=== PATIENT | female | born 1980 | race Caucasian/White ===

== ENCOUNTER 2017-03-21 14:09 | Emergency (ER) | payer MEDICAID ==
[2017-03-21 14:20] VITALS: BMI 34.9
[2017-03-21 14:52] LABS: BILIRUBIN,URINE NEGATIVE (NEGATIVE); BLOOD/HEMOGLOBIN,URINE 1+ (NEGATIVE); GLUCOSE, URINE NEGATIVE (NEGATIVE); KETONES,URINE NEGATIVE (NEGATIVE); LEUKOCYTE ESTERASE ,URINE 1+ (NEGATIVE); NITRITES,URINE NEGATIVE (NEGATIVE); PH,URINE 6.5 (5.0 - 8.0); PROTEIN,URINE NEGATIVE (NEGATIVE); UROBILINOGEN,URINE NORMAL (NORMAL)
[2017-03-21 15:00] LABS: APPEARANCE,URINE CLEAR (CLEAR); COLOR,URINE YELLOW (YELLOW)
[2017-03-21 15:01] LABS: AMORPHOUS SEDIMENT,UR TRACE /HPF (NEGATIVE); BACTERIA,URINE TRACE /HPF (NEGATIVE); MUCUS,URINE FEW /HPF (NEGATIVE); RBC,URINE 0-2 /HPF (NEGATIVE); RENAL EPITHELIAL CELLS,URINE FEW /HPF (NEGATIVE); SQUAMOUS EPITHELIAL CELL,UR FEW /HPF (NEGATIVE)
[2017-03-21] MEDS ORDERED: ZOFRAN INJ 4 MG VIAL IM ONE (15:20)
--- NOTE | 2017-03-21 15:20 | ED.ABDFE ---
HPI - PCP Primary Care Physician: OUT OF [facility] - Complaint Chief Complaint:: ABD PAIN AND PASSING CLOTS. VAGINAL BLEEDING, UNSURE OF - Nurses notes reviewed Nurses Notes Review: Yes - Source History Provided: Patient - Mode of arrival Mode of Arrival: Ambulatory - Timing Onset of Chief Complaint: 03/21/17 Came on: Suddenly PMH - PMH Past Medical History: No Past Surgical History: Yes Surgical History: , [employer] Surgery - Family History History of Family Medical Conditions: Yes Family Medical History: Hypertension - Social History Alcohol Use: None Do you use any recreational Drugs:: No Lives With: Friend Lives Where: Home - infectious screening In the last 2 months have you had wt loss of >10#?: NO Have you had fever, night sweats or hemotysis?: No Have you traveled outside the country in the last 6 months?: No PE - Vital Signs Vitals: Temperature 97.7 F Pulse Rate [Left] 90 Pulse Rate 81 Respiratory Rate 12 Blood Pressure [Left Arm] 118/88 Blood Pressure 170/114 O2 Sat by Pulse Oximetry 99 ROR - Labs Reviewed Result Diagrams: 03/21/17 15:39 03/21/17 15:39 Laboratory: WBC 11.5 X10^3/uL (3.6-10.0) H 03/21/17 15:39 RBC 5.16 X10^6/uL (3.5-5.4) 03/21/17 15:39 Hgb 14.0 g/dL (12.0-16.0) 03/21/17 15:39 Hct 41.8 % (36.0-47.0) 03/21/17 15:39 MCV 81.0 fL (80.0-100.0) 03/21/17 15:39 MCH 27.1 pg (27.0-34.0) 03/21/17 15:39 MCHC 33.5 g/dL (33.0-35.0) 03/21/17 15:39 RDW 14.1 % (11.6-16.5) 03/21/17 15:39 Plt Count 321 X10^3/uL (150.0-450.0) 03/21/17 15:39 MPV 7.8 fL (7.4-11.0) 03/21/17 15:39 Neut % 65.8 % (42.0-75.0) 03/21/17 15:39 Lymph % 26.6 % (21.0-51.0) 03/21/17 15:39 [place] % 4.9 % (0.0-13.0) 03/21/17 15:39 Eos % 1.7 % (0.9-2.9) 03/21/17 15:39 Baso % 1.0 % (0.2-1.0) 03/21/17 15:39 Neut # 7.5 x10^3/uL (2.2-4.8) H 03/21/17 15:39 Lymph # 3.0 X10^3/uL (1.3-2.9) H 03/21/17 15:39 [place] # 0.6 x10^3/uL (0.3-0.8) 03/21/17 15:39 Eos # 0.2 x10^3/uL (0.0-0.2) 03/21/17 15:39 Baso # 0.1 X10^3/uL (0.0-0.1) 03/21/17 15:39 Absolute Nucleated RBC 0.0 /100WBC 03/21/17 15:39 Sodium 140 mmol/L (136-145) 03/21/17 15:39 Corrected Sodium TNP 03/21/17 15:39 Potassium 3.9 mmol/L (3.5-5.1) 03/21/17 15:39 Chloride 100 mmol/L (98-107) 03/21/17 15:39 Carbon Dioxide 28.6 mmol/L (21-32) 03/21/17 15:39 BUN 17 mg/dL (7-18) 03/21/17 15:39 Creatinine 0.88 mg/dL (0.55-1.02) 03/21/17 15:39 Est GFR (MDRD) Af Amer > 60 (>60) 03/21/17 15:39 Est GFR (MDRD) Non-Af > 60 (>60) 03/21/17 15:39 Glucose 93 mg/dL (65-99) 03/21/17 15:39 Calcium 9.5 mg/dL (8.5-10.1) 03/21/17 15:39 Corrected Calcium TNP 03/21/17 15:39 Total Bilirubin 0.80 mg/dL (0.2-1.0) 03/21/17 15:39 AST 22 Units/L (15-37) 03/21/17 15:39 ALT 37 Units/L (12-78) 03/21/17 15:39 Alkaline Phosphatase 94 Units/L (46-116) 03/21/17 15:39 Creatine Kinase 135 Units/L (26-192) 03/21/17 15:39 CK-MB (CK-2) 1.2 ng/mL (0-4.0) 03/21/17 15:39 CK/CKMB % Calc 0.9 % (<4) 03/21/17 15:39 Troponin I < 0.02 ng/mL (0-1.5) 03/21/17 15:39 Total Protein 9.1 g/dL (6.4-8.2) H 03/21/17 15:39 Albumin 4.4 g/dL (3.4-5.0) 03/21/17 15:39 Globulin 4.7 g/dL (2.5-4.5) H 03/21/17 15:39 Albumin/Globulin Ratio 0.9 Ratio (1.1-2.1) L 03/21/17 15:39 Amylase 31 Units/L (25-115) 03/21/17 15:39 Lipase 118 Units/L (73-393) 03/21/17 15:39 HCG, Qual Negative <10 mIU/mL 03/21/17 15:39 Specimen Type Clean catch urine 03/21/17 14:43 Urine Color Yellow (YELLOW) 03/21/17 14:43 Urine Appearance Clear (CLEAR) 03/21/17 14:43 Urine pH 6.5 (5.0 - 8.0) 03/21/17 14:43 Ur Specific [place] 1.020 (1.000-1.030) 03/21/17 14:43 Urine Protein Negative (NEGATIVE) 03/21/17 14:43 Urine Glucose (UA) Negative (NEGATIVE) 03/21/17 14:43 Urine Ketones Negative (NEGATIVE) 03/21/17 14:43 Urine Occult Blood 1+ (NEGATIVE) 03/21/17 14:43 Urine Nitrite Negative (NEGATIVE) 03/21/17 14:43 Urine Bilirubin Negative (NEGATIVE) 03/21/17 14:43 Urine Urobilinogen Normal (NORMAL) 03/21/17 14:43 Ur Leukocyte Esterase 1+ (NEGATIVE) 03/21/17 14:43 Urine RBC 0-2 /HPF (NEGATIVE) 03/21/17 14:43 Urine WBC 0-3 /HPF (NEGATIVE) 03/21/17 14:43 Ur Squamous Epith Cells Few /HPF (NEGATIVE) 03/21/17 14:43 Ur Renal Epithelial Cell Few /HPF (NEGATIVE) 03/21/17 14:43 Amorphous Sediment Trace /HPF (NEGATIVE) 03/21/17 14:43 Urine Bacteria Trace /HPF (NEGATIVE) 03/21/17 14:43 Urine Mucus Few /HPF (NEGATIVE) 03/21/17 14:43 Ur Culture Indicated? No/not indicated 03/21/17 14:43 H. pylori IgG Antibody Negative (NEGATIVE) 03/21/17 16:00 - Diagnosis Discharge Problem: Ovarian cyst Abdominal pain Qualifiers: Abdominal location: generalized Qualified Code(s): R10.84 - Generalized abdominal pain - Discharge Plan Condition: Stable Prescriptions: Ranitidine HCl [ZANTAC TAB 150 MG *] 150 mg PO BID #60 tab Tramadol HCl 50 mg PO Q8H PRN #12 tab PRN Reason: Pain - Follow ups/Referrals Follow ups/Referrals: HELEN MOORE [STAFF PHYSICIAN] - 03/25/17 NFOdette,Georges [Primary Care Provider] - 03/25/17 - Instructions Instructions: Abdominal Pain, Adult, [id number], Ovarian Cyst, [id number] Additional Instructions: RETURN TO ED IF WORSE.
[2017-03-21] MEDS ORDERED: MORPHINE SULFATE INJ 4 MG IM ONE (15:23)
[2017-03-21 15:44] LABS: BASOPHILS # (AUTO) 0.1 X10^3/uL (0.0-0.1); EOSINOPHILS # (AUTO) 0.2 x10^3/uL (0.0-0.2); EOSINOPHILS % (AUTO) 1.7 % (0.9-2.9); HEMATOCRIT 41.8 % (36.0-47.0); LYMPHOCYTES % (AUTO) 26.6 % (21.0-51.0); MEAN CORPUSCULAR HEMOGLOBIN 27.1 pg (27.0-34.0); MEAN CORPUSCULAR HGB CONC 33.5 g/dL (33.0-35.0); MEAN PLATELET VOLUME 7.8 fL (7.4-11.0); MONOCYTES # (AUTO) 0.6 x10^3/uL (0.3-0.8); MONOCYTES % (AUTO) 4.9 % (0.0-13.0); NEUTROPHILS # (AUTO) 7.5 x10^3/uL (2.2-4.8); NEUTROPHILS % (AUTO) 65.8 % (42.0-75.0); PLATELET COUNT 321 X10^3/uL (150.0-450.0); RED BLOOD COUNT 5.16 X10^6/uL (3.5-5.4); RED CELL DISTRIBUTION WIDTH 14.1 % (11.6-16.5); WHITE BLOOD COUNT 11.5 X10^3/uL (3.6-10.0)
[2017-03-21 16:00] LABS: SERUM PREGNANCY TEST, QUAL NEGATIVE <10 mIU/mL
[2017-03-21 16:04] LABS: BLOOD UREA NITROGEN 17 mg/dL (7-18); CALCIUM 9.5 mg/dL (8.5-10.1); CARBON DIOXIDE 28.6 mmol/L (21-32); CHLORIDE 100 mmol/L (98-107); CREATININE 0.88 mg/dL (0.55-1.02); GLUCOSE 93 mg/dL (65-99); SODIUM 140 mmol/L (136-145); TROPONIN I < 0.02 ng/mL (0-1.5); eGFR BLACK RACES > 60 (>60); eGFR NON BLACK RACES > 60 (>60)
[2017-03-21 16:08] LABS: ALANINE AMINOTRANSFERASE 37 Units/L (12-78); ALBUMIN 4.4 g/dL (3.4-5.0); ALKALINE PHOSPHATASE 94 Units/L (46-116); AMYLASE 31 Units/L (25-115); ASPARTATE AMINO TRANSFERASE 22 Units/L (15-37); CKMB % 0.9 % (<4); CREATINE KINASE 135 Units/L (26-192); CREATINE KINASE MB 1.2 ng/mL (0-4.0); LIPASE 118 Units/L (73-393); TOTAL PROTEIN 9.1 g/dL (6.4-8.2)
[2017-03-21] MEDS ORDERED: MORPHINE SULFATE INJ 4 MG ONE (16:41)
[2017-03-21] MEDS ORDERED: ZOFRAN INJ 4 MG VIAL ONE (16:41)
--- NOTE | 2017-03-21 16:43 | CT ---
HISTORY: Abdominal pain. Study: CT abdomen and pelvis without contrast. Dose reduction techniques including Automated Exposur e Control (AEC) and adjustment of mA and kV were utilized. Comparison: None. Technique: Multiple axial images of the abdomen and pelvis were obtained from the lung bases to the pubic symphysis without the administration of IV contrast. Findings: The included portions of the lung bases are clear. The gallbladder is surgically absent. T he liver, pancreas, spleen, adrenal glands and kidneys are unremarkable in their noncontrast CT appe arance. The ascending colon is located within the left abdomen. There are no pericecal inflammatory changes or secondary signs of acute appendicitis. There is no small bowel dilatation. There is no si gnificant mesenteric stranding or lymphadenopathy. There is no intraperitoneal free air or free flui d. Bilateral tubal ligation clips are noted. There is a 3.3 cm left ovarian lesion, possibly reflect ing an ovarian cyst. There are physiologic changes of the uterus. There is a 14 mm cystic lesion wit hin the region of the cervix which may reflect a nabothian cyst, however, ectopic cannot b e excluded. The urinary bladder is well distended and grossly unremarkable. The bony structures are grossly intact. IMPRESSION: 1. Physiologic changes of the uterus with a 14 mm cystic lesion within the region of the cervix whi ch may reflect a nabothian cyst, however, ectopic cannot be excluded. Pelvic ultrasound is recommended for further evaluation. 2. There is a 3.3 cm left ovarian lesion, possibly reflecting an ovarian cyst. This area can be furt her evaluated at the time of recommended pelvic ultrasound. 3. Ascending colon is located within the left abdomen. Reported By:
[2017-03-21 17:09] VITALS: BP 118/88
--- NOTE | 2017-03-21 18:31 | US ---
Ultrasound pelvis Indication: Abdominal pain. History of vaginal bleeding for 1 month. Ovarian cyst suspected. Tubal l igation. Comparison: March 21, 2017 CT. Technique: Dynamic grayscale and Doppler imaging through the pelvis using a transabdominal approach. Findings: The uterus measures 6.0 x 3.5 x 5.0 cm. Mildly thickened endometrium noted measuring 2.5 c m maximally. The right ovary measures 2.5 x 2.4 x 2.0 cm. The left ovary measures 3.3 x 2.3 x 3.6 cm . Left ovarian cyst measures 2.2 x 2.5 x 2.2 cm. This appears simple. Normal flow seen to the ovarie s. Impression: 1. Minimally thickened endometrium may be due to the patient's cycle. However, followup with gynecol ogy recommended to further evaluate. 2. Simple appearing left ovarian cyst. Reported By:
== END 2017-03-21 19:13 | disposition home or self-care (01) ==
LOC: ER 14:29
DX: N83.202 Unspecified ovarian cyst, left side (principal); R10.84 Generalized abdominal pain
CPT/HCPCS: 36415; 74176; 76856; 80053; 81001; 82150; 82550; 82553; 83690; 84484; 84703; 85025; 86677; 96372; 99283; J2270; J2405